=== PATIENT | female | born 1990 | race Caucasian/White ===

== ENCOUNTER 2018-08-15 21:51 | Emergency (ER) | payer SELFPAY ==
[~2018-08-15] VITALS: Ht 175.3 cm; Wt 72.6 kg
--- OUTSIDE RECORDS SUMMARY | 2018-08-15 21:55 | XMS REPORT | Continuity of Care Document ---
Author Author [facility] Interface Address Unknown Phone Unavailable Problems Problem Status Onset Date Classification Date Reported Comments Source Second degree perineal laceration during delivery 05/01/2017 08/01/2017 [facility] Resolved 04/23/2017 Problem 08/01/2017 [facility] 04/22/2017 08/01/2017 [facility] CONTRACTIONS Active 04/22/2017 [facility] PREG Active 03/13/2017 [facility] Asthma Resolved 03/11/2001 Problem 08/01/2017 [facility] Single live 08/01/2017 [facility] Labor and delivery complicated by cord around neck, without compression, not applicable or unspecified 08/01/2017 [facility] Labor and delivery complicated by meconium in amniotic fluid 08/01/2017 [facility] 40 weeks gestation of 08/01/2017 [facility] Medications Medication Details Route Status Patient Instructions Ordering Provider Order Date Source ibuprofen 600 mg oral tablet 600 mg=1 tab, PO, Q6H, 0 Refill(s) Active 04/26/2017 [facility] Multivitamins oral tablet 1 tab, Route: PO, Drug Form: TAB, Dosing Weight 85.455, kg, Daily, Start date: 04/24/17 9:00:00 MULE TENDER, Duration: 30 day, Stop date: 05/23/17 9:00:00 CDT No Longer Active 04/24/2017 [facility] Ibuprofen 600 mg, 1 tab, Route: PO, Drug form: TAB, Q6H, Dosing Weight 85.455, kg, Start date: 04/23/17 18:00:00 MULE TENDER, Duration: 30 day, Stop date: 05/23/17 16:00:00 CDTNotes: (Same as: Motrin) "Do Not Crush" Take with food. No Longer Active 04/24/2017 [facility] Unasyn 3 gm, Route: IVPB, ABXQ6H, Dosing Weight 85.455, kg, Start date: 04/23/17 16:00:00 MULE TENDER, Duration: 2 doses or times, Stop date: 04/24/17 1:00:00 CSTNotes: Dosing based on Ampicillin component (Same as: Unasyn) No Longer Active 04/23/2017 [facility] Acetaminophen 325 MG / Hydrocodone Bitartrate 10 MG Oral Tablet 1 tab, Route: PO, Drug Form: TAB, Dosing Weight 85.455, kg, Q4H, PRN Pain Score 7-10, Start date: 04/23/17 15:23:00 MULE TENDER, Duration: 30 day, Stop date: 05/23/17 15:22:00 CDTNotes: Do not exceed 4gm/day of acetaminophen. (Same as: [place] 325/10) No Longer Active 04/23/2017 [facility] Acetaminophen 325 MG / Hydrocodone Bitartrate 5 MG Oral Tablet 1 tab, Route: PO, Drug Form: TAB, Dosing Weight 85.455, kg, Q4H, PRN Pain Score 4-6, Start date: 04/23/17 15:23:00 MULE TENDER, Duration: 30 day, Stop date: 05/23/17 15:22:00 CDTNotes: (Same as: [place] 325/5) Do not exceed 4gm/day of acetaminophen. No Longer Active 04/23/2017 [facility] Docusate 100 mg, 1 cap, Route: PO, Drug form: CAP, BID, Dosing Weight 85.455, kg, PRN Constipation, Start date: 04/23/17 15:23:00 MULE TENDER, Duration: 30 day, Stop date: 05/23/17 15:22:00 CDTNotes: (Same as: Colace) (Do Not Crush) No Longer Active 04/23/2017 [facility] Methylergonovine 0.2 mg, 1 mL, Route: IM, Drug form: INJ, PRN, Dosing Weight 85.455, kg, PRN Other -See Comment, Start date: 04/23/17 15:23:00 MULE TENDER, Duration: 30 day, Stop date: 05/23/17 16:22:00 CDTNotes: (Same as:Methergine) No Longer Active 04/23/2017 [facility] Benzocaine 200 MG/ML Topical [place] [Dermoplast] 1 spray, Route: TOP, PRN, Drug form: SPRY, PRN Irritation, Start date: 04/23/17 15:23:00 MULE TENDER, Duration: 30 day, Stop date: 05/23/17 16:22:00 CDTNotes: (Same As: Dermoplast) WASTE: Aerosol - Return to Pharmacy FOR EXTERNAL USE ONLY No Longer Active 04/23/2017 [facility] zolpidem 5 mg, 1 tab, Route: PO, Drug form: TAB, Bedtime, Dosing Weight 85.455, kg, PRN Sleep, Start date: 04/23/17 15:23:00 MULE TENDER, Duration: 30 day, Stop date: 05/23/17 15:22:00 CDTNotes: (Same As: Ambien) No Longer Active 04/23/2017 [facility] lanolin topical 1 appl, Route: TOP, PRN, Drug form: CRM, PRN Other -See Comment, Start date: 04/23/17 15:23:00 MULE TENDER, Duration: 30 day, Stop date: 05/23/17 16:22:00 CDT No Longer Active 04/23/2017 [facility] Bisacodyl 10 mg, 1 supp, Route: AR, Drug form: SUPP, PRN, Dosing Weight 85.455, kg, PRN Other -See Comment, Start date: 04/23/17 15:23:00 MULE TENDER, Duration: 30 day, Stop date: 05/23/17 16:22:00 CDTNotes: (Same As: Dulcolax, Bisco-Lax) No Longer Active 04/23/2017 [facility] Ondansetron 4 mg, 2 mL, Route: IVP, Drug form: INJ, Q8H, Dosing Weight 85.455, kg, PRN Nausea & Vomiting, Start date: 04/23/17 15:23:00 MULE TENDER, Duration: 30 day, Stop date: 05/23/17 15:22:00 CDTNotes: (Same as: Zofran) MEDICATION WASTE Product Size: 4 mg Product Wasted: ___ mg No Longer Active 04/23/2017 [facility] Lactated Ringers IV 1,000 mL 1,000 mL, Rate: 100 ml/hr, Infuse over: 10 hr, Route: IV, Dosing Weight 85.455 kg, Total Volume: 1,000, Start date: 04/23/17 15:23:00 MULE TENDER, Duration: 30 day, Stop date: 05/23/17 15:22:00 CDT, 2.06, m2 No Longer Active 04/23/2017 [facility] Oxytocin 30 unit, 500 mL, Rate: 42 ml/hr, Infuse over: 11.9 hr, Dosing Weight 85.455, kg, Route: IV, Total Volume: 500 mL, Start date: 04/23/17 15:23:00 MULE TENDER, Duration: 2 day, Stop date: 04/25/17 15:22:00 MULE TENDER, Replace Every: 11.9 hr No Longer Active 04/23/2017 [facility] Oxytocin 30 unit, 500 mL, Rate: Titrate, Dosing Weight 85.455, kg, Route: IV, Total Volume: 500 mL, Start date: 04/23/17 9:09:00 MULE TENDER, Duration: 2 day, Stop date: 04/25/17 9:08:00 MULE TENDER, Replace Every: 24 hr No Longer Active 04/23/2017 [facility] Carboprost 250 microgram, 1 mL, Route: IM, Drug form: INJ, ONCALL, Dosing Weight 85.455, kg, Start date: 04/23/17 2:00:00 MULE TENDER, Duration: 30 day, Stop date: 05/23/17 2:59:00 CDTNotes: (Same As: Hemabate) No Longer Active 04/23/2017 [facility] Citric Acid / sodium citrate 30 mL, Route: PO, Drug Form: SOLN, Dosing Weight 85.455, kg, ONCALL, Start date: 04/23/17 2:00:00 MULE TENDER, Duration: 30 day, Stop date: 05/23/17 2:59:00 CDTNotes: (Same As: Bicitra) No Longer Active 04/23/2017 [facility] Methylergonovine 0.2 mg, 1 mL, Route: IM, Drug form: INJ, ONCALL, Dosing Weight 85.455, kg, Start date: 04/23/17 2:00:00 MULE TENDER, Duration: 30 day, Stop date: 05/23/17 2:59:00 CDTNotes: (Same as:Methergine) No Longer Active 04/23/2017 [facility] Misoprostol 1,000 microgram, 5 tab, Route: AR, Drug form: TAB, ONCALL, Dosing Weight 85.455, kg, Start date: 04/23/17 2:00:00 MULE TENDER, Duration: 1 doses or timesNotes: (Same as:Cytotec) Take with food No Longer Active 04/23/2017 [facility] Famotidine 20 mg, 2 mL, Route: IVP, Drug form: INJ, ONCALL, Dosing Weight 85.455, kg, Start date: 04/23/17 2:00:00 MULE TENDER, Duration: 30 day, Stop date: 05/23/17 2:59:00 CDTNotes: (Same as: Pepcid) Can be dilute in 5-10cc NS IVP: Slow IV push over at least 2 minutes. No Longer Active 04/23/2017 [facility] Lidocaine Hydrochloride 10 MG/ML Injectable Solution 200 mg, 20 mL, Route: PERCUT, Drug Form: INJ, Dosing Weight 85.455, kg, PRN, PRN Other -See Comment, Start date: 04/23/17 1:33:00 MULE TENDER, Duration: 1 doses or times, Stop date: Limited # of timesNotes: (Same as: Xylocaine) No Longer Active 04/23/2017 [facility] Terbutaline 0.25 mg, 0.25 mL, Route: SUB-Q, Drug form: INJ, PRN, Dosing Weight 85.455, kg, PRN Other -See Comment, Start date: 04/23/17 1:33:00 MULE TENDER, Duration: 1 doses or times, Stop date: Limited # of timesNotes: * *DO NOT USE IN BIOMEDICAL PHOTOGRAPHER AREA (Same As: Brethine) No Longer Active 04/23/2017 [facility] Butorphanol 2 mg, 2 mL, Route: IVP, Drug form: INJ, Q2H, Dosing Weight 85.455, kg, PRN Pain Score 7-10, Start date: 04/23/17 1:33:00 MULE TENDER, Duration: 30 day, Stop date: 05/23/17 1:32:00 CDTNotes: (Same As: Stadol) No Longer Active 04/23/2017 [facility] Ondansetron 4 mg, 2 mL, Route: IVP, Drug form: INJ, Q8H, Dosing Weight 85.455, kg, PRN Nausea & Vomiting, Start date: 04/23/17 1:33:00 MULE TENDER, Duration: 30 day, Stop date: 05/23/17 1:32:00 CDTNotes: (Same as: Zofran) MEDICATION WASTE Product Size: 4 mg Product Wasted: ___ mg Inactive 04/23/2017 [facility] Ibuprofen 600 mg, 1 tab, Route: PO, Drug form: TAB, Q6H, Dosing Weight 85.455, kg, PRN Other -See Comment, Start date: 04/23/17 1:33:00 MULE TENDER, Duration: 30 day, Stop date: 05/23/17 1:32:00 CDTNotes: (Same as: Francesca) "Do Not Crush" Take with food. No Longer Active 04/23/2017 [facility] Acetaminophen 325 MG / Hydrocodone Bitartrate 5 MG Oral Tablet 2 tab, Route: PO, Drug Form: TAB, Dosing Weight 85.455, kg, Q4H, PRN Pain Score 7-10, Start date: 04/23/17 1:33:00 MULE TENDER, Duration: 30 day, Stop date: 05/23/17 1:32:00 CDTNotes: (Same as: [place] 325/5) Do not exceed 4gm/day of acetaminophen. No Longer Active 04/23/2017 [facility] Oxytocin 30 unit, 500 mL, Rate: 42 ml/hr, Infuse over: 11.9 hr, Dosing Weight 85.455, kg, Route: IV, Total Volume: 500 mL, Start date: 04/23/17 1:33:00 MULE TENDER, Duration: 2 day, Stop date: 04/25/17 1:32:00 MULE TENDER, Replace Every: 11.9 hr Inactive 04/23/2017 [facility] Lactated Ringers IV 1,000 mL 1,000 mL, Rate: 200 ml/hr, Infuse over: 5 hr, Route: IV, Dosing Weight 85.455 kg, Total Volume: 1,000, Start date: 04/23/17 1:33:00 MULE TENDER, Duration: 30 day, Stop date: 05/23/17 1:32:00 CDT, 2.06, m2 Inactive 04/23/2017 [facility] Calcium Chloride 0.0014 MEQ/ML / Potassium Chloride 0.004 MEQ/ML / Sodium Chloride 0.103 MEQ/ML / Sodium Lactate 0.028 MEQ/ML Injectable Solution 1,000 mL, 1,000 ml/hr, Infuse Over: 1 hr, Route: IV, 1,000, Drug form: INJ, ONCE, Dosing Weight 85.455 kg, Start date: 04/23/17 1:33:00 MULE TENDER, Stop date: 04/23/17 1:33:00 MULE TENDER, Bolus for regional anesthesia per unit protocol Inactive 04/23/2017 [facility] Lactated Ringers IV 1,000 mL 1,000 mL, Rate: 125 ml/hr, Infuse over: 8 hr, Route: IV, Dosing Weight 85.455 kg, Total Volume: 1,000, Start date: 04/22/17 23:55:00 MULE TENDER, Duration: 30 day, Stop date: 05/22/17 23:54:00 CDT, 2.06, m2 No Longer Active 04/23/2017 [facility] Calcium Chloride 0.0014 MEQ/ML / Potassium Chloride 0.004 MEQ/ML / Sodium Chloride 0.103 MEQ/ML / Sodium Lactate 0.028 MEQ/ML Injectable Solution 1,000 mL, 1,000 ml/hr, Infuse Over: 1 hr, Route: IV, 1,000, Drug form: INJ, ONCE, Priority: STAT, Dosing Weight 85.455 kg, Start date: 04/22/17 23:55:00 MULE TENDER, Stop date: 04/22/17 23:55:00 MULE TENDER No Longer Active 04/23/2017 [facility] Allergies, Adverse Reactions, Alerts Substance Category Reaction Severity Reaction type Status Date Reported Comments Source Ceclor Assertion Severe Drug allergy Active [facility] Immunizations Immunization Date Given Site Status Last Updated Comments Source Results Order Name Results Value Reference Range Date Interpretation Comments Source HEMATOLOGY Hgb 11.2 g/dL 12.0 - 16.0 04/24/2017 [facility] HEMATOLOGY Hct 33.5 % 36.0 - 48.0 04/24/2017 [facility] BLOOD BANK RESULTS ABO/Rh A POS 04/23/2017 [facility] BLOOD BANK RESULTS Rhig Reqd See Note 1 (04/23/17 4:05 AM) 04/23/2017 Result Comment: 04/23/2017 05:05 [id number] This patient is not a candidate for Rh(O)D immune globulin. MS [facility] BLOOD BANK RESULTS Antibody Scrn Negative (04/23/17 4:05 AM) 04/23/2017 [facility] IMMUNOLOGY Treponemal Ab Non Reactive *NA* (04/23/17 4:05 AM) Non Reactive 04/23/2017 [facility] IMMUNOLOGY HIV. Negative *NA* (04/23/17 4:05 AM) Negative 04/23/2017 [facility] IMMUNOLOGY Hep Bs Ag Negative *NA* (04/23/17 4:05 AM) Negative 04/23/2017 [facility] HEMATOLOGY Eosinophils 0.3 % 0.0 - 4.0 04/23/[address] [facility] Monocytes 9.0 % 2.0 - 12.0 04/23/[address] [facility] Lymphocytes 18.8 % 20.0 - 40.0 04/23/2017 [facility] HEMATOLOGY Segs 71.4 % 45.0 - 75.0 04/23/[address] [facility] Monocytes # 1.0 K/CMM 0.0 - 0.8 04/23/[address] [facility] Lymphocytes # 2.0 K/CMM 1.0 - 5.5 04/23/[address] [facility] Basophils 0.5 % 0.0 - 1.0 04/23/[address] [facility] Segs-Bands # 7.7 K/CMM 1.5 - 8.1 04/23/[address] [facility] Basophils # 0.1 K/CMM 0.0 - 0.2 04/23/[address] [facility] Platelet 179 K/CMM 133 - 450 04/23/[address] [facility] MPV 9.7 fL 7.4 - 10.4 04/23/[address] [facility] MCHC 33.7 g/dL 32.0 - 36.0 04/23/[address] [facility] RDW 13.8 % 11.5 - 14.5 04/23/[address] [facility] Hct 37.3 % 36.0 - 48.0 04/23/[address] [facility] MCV 90.1 fL 80.0 - 98.0 04/23/[address] [facility] MCH 30.4 pg 27.0 - 31.0 04/23/[address] [facility] Hgb 12.6 g/dL 12.0 - 16.0 04/23/[address] [facility] RBC 4.14 M/CMM 4.20 - 5.40 04/23/[address] [facility] WBC 10.8 K/CMM 3.7 - 10.4 04/23/2017 [facility] Vital Signs Vital Sign Value Date Comments Source Temperature Oral (F) 98.9 F 04/25/2017 [facility] Heart Rate 76 04/25/2017 [facility] Respitory Rate 14 04/25/2017 [facility] Systolic (mm Hg) 126 04/25/2017 [facility] Diastolic (mm Hg) 80 04/25/2017 [facility] Systolic (mm Hg) 118 04/25/2017 [facility] Diastolic (mm Hg) 77 04/25/2017 [facility] Temperature Oral (F) 98.3 F 04/25/2017 [facility] Respitory Rate 16 04/25/2017 [facility] Heart Rate 83 04/25/2017 [facility] Heart Rate 73 04/25/2017 [facility] Systolic (mm Hg) 114 04/25/2017 [facility] Diastolic (mm Hg) 75 04/25/2017 [facility] Respitory Rate 14 04/25/2017 [facility] Temperature Oral (F) 98.3 F 04/25/2017 [facility] BMI Calculated 27.82 04/23/2017 [facility] Weight 85.455 04/23/2017 [facility] Height 175.26 cm 04/23/2017 [facility] BMI Calculated 27.82 04/23/2017 [facility] Weight 85.455 04/23/2017 [facility] Height 175.26 cm 04/23/2017 [facility] Encounters Location Location Details Encounter Type Encounter Number Reason For Visit Attending Provider ADM Date DC Date Status Source [facility] Inpatient [id number] Jossue Grimaldo 04/23/2017 04/26/2017 [facility] PreAdmit [id number] Jossue Grimaldo 04/23/2017 04/23/2017 [facility] Procedures Procedure Code Date Perfomer Comments Source Colonoscopy [id number] 03/11/2010 [facility] Tonsillectomy [id number] 03/11/1995 [facility]
--- OUTSIDE RECORDS SUMMARY | 2018-08-15 21:55 | XMS REPORT | Summary of Care ---
Author Author [facility] Organization [facility] Address Unknown Phone Unavailable Encounter [facility] Encntr_ayan(FIN) [id number] Date(s): 04/22/17 - 04/22/17 [facility] [address] [place] [address]- Attending Physician: Jossue Grimaldo MD Admitting Physician: Jossue Grimaldo MD Vital Signs No data available for this section Problem List Condition Effective Dates Status Health Status Informant Asthma(Confirmed) 2001 - 2011 Resolved (Confirmed) 04/23/17 - 04/23/17 Resolved Allergies, Adverse Reactions, Alerts Substance Reaction Severity Status Ceclor Severe Active Medications No data available for this section Results No data available for this section Immunizations No data available for this section Procedures Procedure Date Related Diagnosis Body Site Status Colonoscopy 2010 Completed Tonsillectomy 1995 Completed Social History Social History Type Response Smoking Status Never smoker; Exposure to Tobacco Smoke None; Cigarette Smoking Last 365 Days No; Reg Smoking Cessation Counseling No entered on: 04/23/17 Assessment and Plan No data available for this section
--- OUTSIDE RECORDS SUMMARY | 2018-08-15 21:55 | XMS REPORT | Summary of Care ---
Author Author [facility] Organization [facility] Address Unknown Phone Unavailable Encounter KATARINA Coates(LEILANI) [id number] Date(s): 04/22/17 - 04/25/17 [facility] [address] [place] [address]- Encounter Diagnosis (Discharge Diagnosis) - 04/22/17 Second degree perineal laceration during delivery (Final) - 04/30/17 Single live (Final) - Labor and delivery complicated by cord around neck, without compression, not reza licable or unspecified (Final) - Labor and delivery complicated by meconium in amniotic fluid (Final) - 40 weeks gestation of (Final) - Discharge Disposition: Home or Self Care Attending Physician: Jossue Grimaldo MD Admitting Physician: Jossue Grimaldo MD Vital Signs 1 2 3 Most recent to oldest [Reference Range]: 175.26 cm (04/23/17 5:05 AM) 175.26 cm (04/22/17 9:50 PM) Height 98.9 DegF (04/25/17 3:43 PM) 98.3 DegF (04/25/17 12:17 PM) 98.3 DegF (04/25/17 7:48 AM) Temperature Oral [96.4-99.1 DegF] 126/80 mmHg (04/25/17 3:43 PM) 118/77 mmHg (04/25/17 12:17 PM) 114/75 mmHg (04/25/17 7:48 AM) Blood Pressure [90-140/60-90 mmHg] 14 BRMIN (04/25/17 3:43 PM) 16 BRMIN (04/25/17 12:17 PM) 14 BRMIN (04/25/17 7:48 AM) Respiratory Rate [14-20 BRMIN] 76 bpm (04/25/17 3:43 PM) 83 bpm (04/25/17 12:17 PM) 73 bpm (04/25/17 7:48 AM) Peripheral Pulse Rate [60-100 bpm] 85.455 kg (04/23/17 5:05 AM) 85.455 kg (04/22/17 9:50 PM) Weight 27.82 m2 (04/23/17 5:05 AM) 27.82 m2 (04/22/17 9:50 PM) Body Mass Index Problem List Condition Effective Dates Status Health Status Informant Asthma(Confirmed) 2001 - 2011 Resolved (Confirmed) 04/23/17 - 04/23/17 Resolved Allergies, Adverse Reactions, Alerts Substance Reaction Severity Status Ceclor Severe Active Medications acetaminophen-hydrocodone 325 mg-10 mg oral tablet 1 tab, Route: PO, Drug Form: TAB, Dosing Weight 85.455, kg, Q4H, PRN Pain Score 7-10, Start date: 04/23/17 15:23:00 CONSULTING GROUP ANALYST, Duration: 30 day, Stop date: 05/23/17 5:22:00 CDT Notes: Do not exceed 4gm/day of acetaminophen. (Same as: Coats 325/10) Start Date: 04/23/17 Stop Date: 04/26/17 Status: Discontinued acetaminophen-hydrocodone 325 mg-5 mg oral tablet 1 tab, Route: PO, Drug Form: TAB, Dosing Weight 85.455, kg, Q4H, PRN Pain Score 4-6, Start date: 04/23/17 15:23:00 CONSULTING GROUP ANALYST, Duration: 30 day, Stop date: 05/23/17 15 :22:00 CDT Notes: (Same as: Coats 325/5) Do not exceed 4gm/day of acetaminophen. Start Date: 04/23/17 Stop Date: 04/26/17 Status: Discontinued acetaminophen-hydrocodone 325 mg-5 mg oral tablet 2 tab, Route: PO, Drug Form: TAB, Dosing Weight 85.455, kg, Q4H, PRN Pain Score 7-10, Start date: 04/23/17 1:33:00 CONSULTING GROUP ANALYST, Duration: 30 day, Stop date: 05/23/17 1: 32:00 CDT Notes: (Same as: Coats 325/5) Do not exceed 4gm/day of acetaminophen. Start Date: 04/23/17 Stop Date: 04/24/17 Status: Discontinued acetaminophen-hydrocodone 325 mg-5 mg oral tablet 1 tab, Route: PO, Drug Form: TAB, Dosing Weight 85.455, kg, Q4H, PRN Pain Score 4-6, Start date: 04/23/17 1:33:00 CONSULTING GROUP ANALYST, Duration: 30 day, Stop date: 05/23/17 1:3 2:00 CDT Notes: (Same as: Coats 325/5) Do not exceed 4gm/day of acetaminophen. Start Date: 04/23/17 Stop Date: 04/23/17 Status: Deleted bisacodyl 10 mg, 1 supp, Route: FL, Drug form: SUPP, PRN, Dosing Weight 85.455, kg, PRN Ot her -See Comment, Start date: 04/23/17 15:23:00 CONSULTING GROUP ANALYST, Duration: 30 day, Stop date : 05/23/17 16:22:00 CDT Notes: (Same As: Dulcolax, Bisco-Lax) Start Date: 04/23/17 Stop Date: 04/26/17 Status: Discontinued bisacodyl 15 mg, 3 tab, Route: PO, Drug form: ECTAB, Daily, Dosing Weight 85.455, kg, PRN Other -See Comment, Start date: 04/23/17 15:23:00 CONSULTING GROUP ANALYST, Duration: 30 day, Stop da te: 05/23/17 15:22:00 CDT Notes: (Same As: Dulcolax, Correctol) (Do Not Crush) "Do Not Crush" Start Date: 04/23/17 Stop Date: 04/26/17 Status: Discontinued butorphanol 2 mg, 2 mL, Route: IVP, Drug form: INJ, Q2H, Dosing Weight 85.455, kg, PRN Pain Score 7-10, Start date: 04/23/17 1:33:00 CONSULTING GROUP ANALYST, Duration: 30 day, Stop date: 05/23 1:32:00 CDT Notes: (Same As: Stadol) Start Date: 04/23/17 Stop Date: 04/24/17 Status: Discontinued butorphanol 1 mg, 1 mL, Route: IVP, Drug form: INJ, Q2H, Dosing Weight 85.455, kg, PRN Pain Score 4-6, Start date: 04/23/17 1:33:00 CONSULTING GROUP ANALYST, Duration: 30 day, Stop date: 1:32:00 CDT Notes: (Same As: Stadol) Start Date: 04/23/17 Stop Date: 04/24/17 Status: Discontinued carboprost 250 microgram, 1 mL, Route: IM, Drug form: INJ, ONCALL, Dosing Weight 85.455, kg , Start date: 04/23/17 2:00:00 CONSULTING GROUP ANALYST, Duration: 30 day, Stop date: 05/23/17 2:59:0 0 CDT Notes: (Same As: Hemabate) Start Date: 04/23/17 Stop Date: 04/24/17 Status: Discontinued citric acid-sodium citrate 30 mL, Route: PO, Drug Form: SOLN, Dosing Weight 85.455, kg, ONCALL, Start date: 04/23/17 2:00:00 CONSULTING GROUP ANALYST, Duration: 30 day, Stop date: 05/23/17 2:59:00 CDT Notes: (Same As: Bicitra) Start Date: 04/23/17 Stop Date: 04/24/17 Status: Discontinued Dermoplast 20% topical spray 1 spray, Route: TOP, PRN, Drug form: SPRY, PRN Irritation, Start date: 04/23/17 15:23:00 CONSULTING GROUP ANALYST, Duration: 30 day, Stop date: 05/23/17 16:22:00 CDT Notes: (Same As: Dermoplast)WASTE: Aerosol - Return to Pharmacy FOR EXTERNAL US E ONLY Start Date: 04/23/17 Stop Date: 04/26/17 Status: Discontinued docusate 100 mg, 1 cap, Route: PO, Drug form: CAP, BID, Dosing Weight 85.455, kg, PRN Con stipation, Start date: 04/23/17 15:23:00 CONSULTING GROUP ANALYST, Duration: 30 day, Stop date: 05/23 15:22:00 CDT Notes: (Same as: Colace) (Do Not Crush) Start Date: 04/23/17 Stop Date: 04/26/17 Status: Discontinued famotidine 20 mg, 2 mL, Route: IVP, Drug form: INJ, ONCALL, Dosing Weight 85.455, kg, Start date: 04/23/17 2:00:00 CONSULTING GROUP ANALYST, Duration: 30 day, Stop date: 05/23/17 2:59:00 CDT Notes: (Same as: Pepcid)Can be dilute in 5-10cc NS IVP: Slow IV push over at le ast 2 minutes. Start Date: 04/23/17 Stop Date: 04/24/17 Status: Discontinued ibuprofen 600 mg, 1 tab, Route: PO, Drug form: TAB, Q6H, Dosing Weight 85.455, kg, Start d ate: 04/23/17 18:00:00 CONSULTING GROUP ANALYST, Duration: 30 day, Stop date: 05/23/17 16:00:00 CDT Notes: (Same as: Motrin)"Do Not Crush" Take with food. Start Date: 04/23/17 Stop Date: 04/26/17 Status: Discontinued ibuprofen 600 mg, 1 tab, Route: PO, Drug form: TAB, Q6H, Dosing Weight 85.455, kg, PRN Oth er -See Comment, Start date: 04/23/17 1:33:00 CONSULTING GROUP ANALYST, Duration: 30 day, Stop date: 05/23/17 1:32:00 CDT Notes: (Same as: Motrin)"Do Not Crush" Take with food. Start Date: 04/23/17 Stop Date: 04/24/17 Status: Discontinued ibuprofen 600 mg oral tablet 600 mg=1 tab, PO, Q6H, 0 Refill(s) Start Date: 04/25/17 Status: Ordered Lactated Ringers (Bolus) IV 1,000 mL, 1,000 ml/hr, Infuse Over: 1 hr, Route: IV, 1,000, Drug form: INJ, ONCE , Priority: STAT, Dosing Weight 85.455 kg, Start date: 04/22/17 23:55:00 CONSULTING GROUP ANALYST, St op date: 04/22/17 23:55:00 CONSULTING GROUP ANALYST Start Date: 04/22/17 Stop Date: 04/23/17 Status: Completed Lactated Ringers (Bolus) IV 1,000 mL, 1,000 ml/hr, Infuse Over: 1 hr, Route: IV, 1,000, Drug form: INJ, ONCE , Dosing Weight 85.455 kg, Start date: 04/23/17 1:33:00 CONSULTING GROUP ANALYST, Stop date: 04/23/17 1:33:00 CONSULTING GROUP ANALYST, Bolus for regional anesthesia per unit protocol Start Date: 04/23/17 Stop Date: 04/23/17 Status: Completed Lactated Ringers IV 1,000 mL 1,000 mL, Rate: 125 ml/hr, Infuse over: 8 hr, Route: IV, Dosing Weight 85.455 kg , Total Volume: 1,000, Start date: 04/22/17 23:55:00 CONSULTING GROUP ANALYST, Duration: 30 day, Stop date: 05/22/17 23:54:00 CDT, 2.06, m2 Start Date: 04/22/17 Stop Date: 04/23/17 Status: Discontinued Lactated Ringers IV 1,000 mL 1,000 mL, Rate: 100 ml/hr, Infuse over: 10 hr, Route: IV, Dosing Weight 85.455 k g, Total Volume: 1,000, Start date: 04/23/17 15:23:00 CONSULTING GROUP ANALYST, Duration: 30 day, Sto p date: 05/23/17 15:22:00 CDT, 2.06, m2 Start Date: 04/23/17 Stop Date: 04/26/17 Status: Discontinued Lactated Ringers IV 1,000 mL 1,000 mL, Rate: 200 ml/hr, Infuse over: 5 hr, Route: IV, Dosing Weight 85.455 kg , Total Volume: 1,000, Start date: 04/23/17 1:33:00 CONSULTING GROUP ANALYST, Duration: 30 day, Stop date: 05/23/17 1:32:00 CDT, 2.06, m2 Start Date: 04/23/17 Stop Date: 04/23/17 Status: Discontinued lanolin topical 1 appl, Route: TOP, PRN, Drug form: CRM, PRN Other -See Comment, Start date: 15:23:00 CONSULTING GROUP ANALYST, Duration: 30 day, Stop date: 05/23/17 16:22:00 CDT Start Date: 04/23/17 Stop Date: 04/26/17 Status: Discontinued lidocaine 1% 200 mg, 20 mL, Route: PERCUT, Drug Form: INJ, Dosing Weight 85.455, kg, PRN, PRN Other -See Comment, Start date: 04/23/17 1:33:00 CONSULTING GROUP ANALYST, Duration: 1 doses or time s, Stop date: Limited # of times Notes: (Same as: Xylocaine) Start Date: 04/23/17 Stop Date: 04/24/17 Status: Discontinued lidocaine 1% injectable solution 0.25 mL, Route: INTRADERM, Drug Form: INJ, Dosing Weight 85.455, kg, PRN, PRN Ot her -See Comment, Start date: 04/23/17 1:33:00 CONSULTING GROUP ANALYST, Duration: 30 day, Stop date: 05/23/17 2:32:00 CDT Notes: Preservative free. (Same as: Xylocaine MPF) Start Date: 04/23/17 Stop Date: 04/24/17 Status: Discontinued methylergonovine 0.2 mg, 1 mL, Route: IM, Drug form: INJ, PRN, Dosing Weight 85.455, kg, PRN Othe r -See Comment, Start date: 04/23/17 15:23:00 CONSULTING GROUP ANALYST, Duration: 30 day, Stop date: 05/23/17 16:22:00 CDT Notes: (Same as:Methergine) Start Date: 04/23/17 Stop Date: 04/26/17 Status: Discontinued methylergonovine 0.2 mg, 1 mL, Route: IM, Drug form: INJ, ONCALL, Dosing Weight 85.455, kg, Start date: 04/23/17 2:00:00 CONSULTING GROUP ANALYST, Duration: 30 day, Stop date: 05/23/17 2:59:00 CDT Notes: (Same as:Methergine) Start Date: 04/23/17 Stop Date: 04/24/17 Status: Discontinued misoprostol 1,000 microgram, 5 tab, Route: FL, Drug form: TAB, ONCALL, Dosing Weight 85.455, kg, Start date: 04/23/17 2:00:00 CONSULTING GROUP ANALYST, Duration: 1 doses or times Notes: (Same as:Cytotec) Take with food Start Date: 04/23/17 Stop Date: 04/24/17 Status: Discontinued ondansetron 4 mg, 2 mL, Route: IVP, Drug form: INJ, Q8H, Dosing Weight 85.455, kg, PRN Nause a & Vomiting, Start date: 04/23/17 15:23:00 CONSULTING GROUP ANALYST, Duration: 30 day, Stop date: 05/23/17 15:22:00 CDT Notes: (Same as: Zofran) MEDICATION WASTE Product Size: 4 mgProduct Was gutierrez: ___ mg Start Date: 04/23/17 Stop Date: 04/26/17 Status: Discontinued ondansetron 4 mg, 2 mL, Route: IVP, Drug form: INJ, Q8H, Dosing Weight 85.455, kg, PRN Nause a & Vomiting, Start date: 04/23/17 1:33:00 CONSULTING GROUP ANALYST, Duration: 30 day, Stop date: 05/23/17 1:32:00 CDT Notes: (Same as: [place]) MEDICATION WASTE Product Size: 4 mgProduct Was gutierrez: ___ mg Start Date: 04/23/17 Stop Date: 04/23/17 Status: Voided With Results oxytocin 30 units in NS 500ml (Titrate) IV 30 unit 30 unit, 500 mL, Rate: 42 ml/hr, Infuse over: 11.9 hr, Dosing Weight 85.455, kg, Route: IV, Total Volume: 500 mL, Start date: 04/23/17 15:23:00 CONSULTING GROUP ANALYST, Duration: 2 day, Stop date: 04/25/17 15:22:00 CONSULTING GROUP ANALYST, Replace Every: 11.9 hr Start Date: 04/23/17 Stop Date: 04/25/17 Status: Completed oxytocin 30 units in NS 500ml (Titrate) IV 30 unit 30 unit, 500 mL, Rate: 42 ml/hr, Infuse over: 11.9 hr, Dosing Weight 85.455, kg, Route: IV, Total Volume: 500 mL, Start date: 04/23/17 1:33:00 CONSULTING GROUP ANALYST, Duration: 2 day, Stop date: 04/25/17 1:32:00 CONSULTING GROUP ANALYST, Replace Every: 11.9 hr Start Date: 04/23/17 Stop Date: 04/23/17 Status: Discontinued oxytocin 30 units in NS 500ml (Titrate) IV 30 unit 30 unit, 500 mL, Rate: Titrate, Dosing Weight 85.455, kg, Route: IV, Total Volum e: 500 mL, Start date: 04/23/17 9:09:00 CONSULTING GROUP ANALYST, Duration: 2 day, Stop date: 8 9:08:00 CONSULTING GROUP ANALYST, Replace Every: 24 hr Start Date: 04/23/17 Stop Date: 04/24/17 Status: Discontinued Multivitamins oral tablet 1 tab, Route: PO, Drug Form: TAB, Dosing Weight 85.455, kg, Daily, Start date: 0 04/24/17 9:00:00 CONSULTING GROUP ANALYST, Duration: 30 day, Stop date: 05/23/17 9:00:00 CDT Start Date: 04/24/17 Stop Date: 04/26/17 Status: Discontinued terbutaline 0.25 mg, 0.25 mL, Route: SUB-Q, Drug form: INJ, PRN, Dosing Weight 85.455, kg, P RN Other -See Comment, Start date: 04/23/17 1:33:00 CONSULTING GROUP ANALYST, Duration: 1 doses or ti mes, Stop date: Limited # of times Notes: DO NOT USE IN WOOL AND PELT GRADER AREA(Same As: Taniya) Start Date: 04/23/17 Stop Date: 04/24/17 Status: Discontinued Unasyn + Sodium Chloride 0.9% IV 100 mL 3 gm, Route: IVPB, ABXQ6H, Dosing Weight 85.455, kg, Start date: 04/23/17 16:00: 00 CONSULTING GROUP ANALYST, Duration: 2 doses or times, Stop date: 04/24/17 1:00:00 CONSULTING GROUP ANALYST Notes: Dosing based on Ampicillin component (Same as: Unasyn) Start Date: 04/23/17 Stop Date: 04/24/17 Status: Completed zolpidem 5 mg, 1 tab, Route: PO, Drug form: TAB, Bedtime, Dosing Weight 85.455, kg, PRN S leep, Start date: 04/23/17 15:23:00 CONSULTING GROUP ANALYST, Duration: 30 day, Stop date: 05/23/17 1 5:22:00 CDT Notes: (Same As: Naa) Start Date: 04/23/17 Stop Date: 04/26/17 Status: Discontinued Results BLOOD BANK RESULTS Most recent to 1 2 oldest [Reference Range]: ABO/Rh A POS *Unknown* (04/23/17 4:05 AM) Antibody Scrn Negative (04/23/17 4:05 AM) Rhig Reqd See Note 1 (04/23/17 4:05 AM) 1Result Comment: 04/23/2017 05:05 [id number] This patient is not a candidate for Rh(O)D immune globulin. MS IMMUNOLOGY Most recent to 1 2 oldest [Reference Range]: Treponemal Ab [Non Non Reactive Reactive] *NA* (04/23/17 4:05 AM) HIV. [Negative] Negative *NA* (04/23/17 4:05 AM) Hep Bs Ag [Negative] Negative *NA* (04/23/17 4:05 AM) HEMATOLOGY Most recent to 1 2 oldest [Reference Range]: WBC [3.7-10.4 K/CMM] 10.8 K/CMM *HI* (04/23/17 12:10 AM) RBC [4.20-5.40 4.14 M/CMM M/CMM] *LOW* (04/23/17 12:10 AM) Hgb [12.0-16.0 g/dL] 11.2 g/dL 12.6 g/dL *LOW* (04/23/17 12:10 AM) (04/24/17 5:55 AM) Hct [36.0-48.0 %] 33.5 % 37.3 % *LOW* (04/23/17 12:10 AM) (04/24/17 5:55 AM) MCV [80.0-98.0 fL] 90.1 fL (04/23/17 12:10 AM) MCH [27.0-31.0 pg] 30.4 pg (04/23/17 12:10 AM) MCHC [32.0-36.0 33.7 g/dL g/dL] (04/23/17 12:10 AM) RDW [11.5-14.5 %] 13.8 % (04/23/17 12:10 AM) MPV [7.4-10.4 fL] 9.7 fL (04/23/17 12:10 AM) Platelet [133-450 179 K/CMM K/CMM] (04/23/17 12:10 AM) Segs [45.0-75.0 %] 71.4 % (04/23/17 12:10 AM) Lymphocytes 18.8 % [20.0-40.0 %] *LOW* (04/23/17 12:10 AM) Monocytes [2.0-12.0 9.0 % %] (04/23/17 12:10 AM) Eosinophils [0.0-4.0 0.3 % %] (04/23/17 12:10 AM) Basophils [0.0-1.0 0.5 % %] (04/23/17 12:10 AM) Segs-Bands # 7.7 K/CMM [1.5-8.1 K/CMM] (04/23/17 12:10 AM) Lymphocytes # 2.0 K/CMM [1.0-5.5 K/CMM] (04/23/17 12:10 AM) Monocytes # [0.0-0.8 1.0 K/CMM K/CMM] *HI* (04/23/17 12:10 AM) Basophils # [0.0-0.2 0.1 K/CMM K/CMM] (04/23/17 12:10 AM) Immunizations No data available for this section Procedures Procedure Date Related Diagnosis Body Site Status Colonoscopy 2010 Completed Tonsillectomy 1995 Completed Social History Social History Type Response Smoking Status Never smoker; Exposure to Tobacco Smoke None; Cigarette Smoking Last 365 Days No; Reg Smoking Cessation Counseling No entered on: 04/23/17 Assessment and Plan Extracted from: Title: PPD #1 Author: Jossue Grimaldo MD Date: 04/24/17 PPD #1 S: Pt is without complaints, pain is well controlled, + void, + flatus, -BM O: AVSS Breasts- soft, NT Abdomen- uterus firm 2cm below the umbilicu Vag- light lochia 11.2/33.5 FTA Abs- NR, HIV- negative, A positive, Rubella- Immune Impression: POD #1 stable Plan: Observe, probable D/C tomorrow. Extracted from: Title: OB H&P Author: Tamra Branch Date: 04/23/17 Basic Information Time seen: Date & time 04/22/2017 21:40, Immediately upon arrival. History source: Patient. History limitation: None. Additional information: Chief Complaint from Nursing Triage Note : Chief Complaint 04/22/2017 21:50 Chief Complaint ctx since 1800 . History of Present Illness 25 IUP 40 0/7 presents due to complaint of regular uterine contractions since this afternoon. She refers good movements and denies any gush of vaginal fluids or vaginal bleeding. Status : 1, Para: 0 40 weeks. Contractions: 4 minutes apart regular. movement: present. Character of pain: sharp pressure. Bleeding: none. Discharge: none. Review of Systems Constitutional symptoms: Neg. Skin symptoms: Neg. Respiratory symptoms: Neg, No cough, Cardiovascular symptoms: Neg. Gastrointestinal symptoms: No nausea, no vomiting, no diarrhea. Genitourinary symptoms: Uterine contractions, Denies LOF, No vaginal bleeding, Musculoskeletal symptoms: Neg. Neurologic symptoms: Neg, No headache, Psychiatric symptoms: Neg. Additional review of systems information: All other systems reviewed and otherwise negative. Health Status Allergies: Allergic Reactions (All) Severe Ceclor- No reactions were documented.. Past Medical/ Family/ Social History Medical history: No active or resolved past medical history items have been selected or recorded.. Surgical history: Colonoscopy ([id number]) in 2010 at 20 Years. Tonsillectomy ([id number]) in 1995 at 5 Years.. Social history: Social & Psychosocial Habits Tobacco 04/22/2017 Use: Never smoker Exposure to Tobacco Smoke None Cigarette Smoking Last 365 Days No Reg Smoking Cessation Counseling No . Problem list: No qualifying data available . Physical Examination Vital Signs ED-Vital Signs 04/22/2017 21:50 Temperature Oral 98.2 DegF Normal Peripheral Pulse Rate 18 bpm LOW Respiratory Rate 75 BRMIN HI SpO2 percent 98 % Normal Systolic Blood Pressure 118 mmHg Normal Diastolic Blood Pressure 85 mmHg Normal . Medical Decision Making Differential Diagnosis: . Heart Rate Electronic Monitor baseline 133, Variability Moderate, Accelerations Present, Decelerations Absent. Impression and Plan Diagnosis ([id number] Z34.90, Discharge, Medical) Calls-Consults - 04/22/2017 23:56 , Jossue Grimaldo MD, phone call, recommends recheck in 1 hr. - 04/23/2017 01:06 , Jossue Grimaldo MD, phone call, recommends Admit. 25 IUP 40 0/ presented due to complaint of regular uterine contractions since this afternoon. Patient found to be in labor. Discussed case with Dr Grimaldo, he agreed on admission and will assume care of patient from this point on. Patient will be admitted to L&D, GBS is negative.
[2018-08-15] MEDS ORDERED: TRAMADOL HCL 50 MG TAB PO ONE (22:15)
--- NOTE | 2018-08-15 23:03 | Diagnostic Imaging Report ---
KNEE LEFT THREE VIEWS - 3 views HISTORY: Pain COMPARISON: None available. FINDINGS: Bones: No acute displaced fracture. Osseous alignment is within normal limits. Joints: The joint spaces are well-maintained. Soft tissues: The soft tissues appear unremarkable. IMPRESSION: No acute radiographic abnormality. Signed by: Dr. Doug Johnson MD on 08/15/2018 11:00 PM
== END 2018-08-15 23:30 | disposition home or self-care (01) ==
LOC: ER 21:51
DX: S83.412A Sprain of medial collateral ligament of left knee, initial encounter (principal); S83.422A Sprain of lateral collateral ligament of left knee, initial encounter; W51.XXXA Accidental striking against or bumped into by another person, initial encounter; Y93.64 Activity, baseball; Y92.320 Baseball field as the place of occurrence of the external cause
CPT/HCPCS: 99284